=== PATIENT | female | born 1950 | race Caucasian/White ===

== ENCOUNTER 2020-09-06 11:11 | Emergency (ER) | payer OTHER, MEDICARE ==
[2020-09-06] MEDS ORDERED: HYDROcodone/Acetaminophen 5/325 mg Tablet ONE (11:59)
== END 2020-09-06 12:28 | disposition home or self-care (01) ==
LOC: MADERS 11:11
DX: S42.201A Unspecified fracture of upper end of right humerus, initial encounter for closed fracture (principal); W01.0XXA Fall on same level from slipping, tripping and stumbling without subsequent striking against object, initial encounter

== ENCOUNTER 2021-02-28 23:25 | Emergency (ER) | payer MEDICARE, OTHER | END 2021-03-01 00:16 | disposition home or self-care (01) | LOC: MADERS 23:25 | DX: R06.2 Wheezing (principal); K21.9 Gastro-esophageal reflux disease without esophagitis | CPT/HCPCS: 71046; J7620 ==

== ENCOUNTER 2023-06-16 19:09 | Emergency (ER) | payer MEDICARE, OTHER ==
[2023-06-16] MEDS ORDERED: Amoxicillin/Potassium Clav 875 MG TAB ONE (20:10)
[2023-06-16] MEDS ORDERED: Boostrix 0.5 ML (Tdap) VIAL (>/=7 yrs of age) ONE (20:11)
== END 2023-06-16 20:34 | disposition home or self-care (01) ==
LOC: MADERS 19:09
DX: S61.051A Open bite of right thumb without damage to nail, initial encounter (principal); S61.041A Puncture wound with foreign body of right thumb without damage to nail, initial encounter; W55.01XA Bitten by cat, initial encounter
CPT/HCPCS: 90471; 90715; 99283